=== PATIENT | female | born 1980 | race African-American/Black ===

== ENCOUNTER 2017-02-14 00:09 | Emergency (ER) | payer MEDICAID ==
[~2017-02-14] VITALS: Ht 170.2 cm; Wt 82.6 kg
[~2017-02-14 00:09] MED LIST: ALBUTEROL SULF8.5 GM INH; AZITHROMYCIN250 MG ORAL; IBUPROFEN600 MG ORAL; LEVAQUIN750 MG ORAL; MACROBID100 MG ORAL; NORCO 5-325 TA1 EACH ORAL; PAROXETINE HCL20 MG PO; PREDNISONE20 MG ORAL; PROMETHAZINE-C118 M1 ORAL; PROMETHAZINE-P118 M1 PO; TESSALON PERLE100 M2 ORAL
[2017-02-14 00:30] VITALS: BP 118/68
[2017-02-14] MEDS ORDERED: Lidocaine 2% Visc 15ml soln ORAL ONE (00:30)
[2017-02-14] MEDS ORDERED: LIDOCAINE VISC100 ML ORAL (00:51)
[2017-02-14 00:56] VITALS: BP 118/68
--- NOTE | 2017-02-14 01:06 | Emergency Room Report ---
History of Present Illness General Chief Complaint: Sore Throat Source: Patient Present Illness HPI Patient is a 36-year-old female presented after increased sore throat. Patient had recent tonsillectomy. Patient had not been having any fever. She reported having some increase pain to her throat. Patient states that she had run out of her Tylenol with codeine. She had not been bleeding. Patient surgery done at [facility]. Allergies: Coded Allergies: ACETAMINOPHEN (Verified Adverse Reaction, 06/17/13) OXYCODONE (Verified Adverse Reaction, 06/17/13) Patient History Past Medical History: see triage record Last Menstrual Period: 01/18/17 Now: No Reviewed Nursing Documentation: PMH: Agreed, PSxH: Agreed Nursing Documentation-PMH Past Medical History: No History, Except For Hx Cardiac Problems: No - Chronic Tonsilitis Hx Hypertension: No Hx Pacemaker: No Hx Asthma: Yes Hx COPD: No Hx Diabetes: No Hx Cancer: No Hx Gastrointestinal Problems: No Hx Dialysis: No Hx Neurological Problems: No Hx Cerebrovascular Accident: No Hx Seizures: No Review of Systems All Other Systems: negative except mentioned in HPI Physical Exam Vital Signs Date Time Temp Pulse Resp B/P (MAP) Pulse Ox O2 Delivery O2 Flow Rate FiO2 02/14/17 00:16 98.2 58 17 118/68 97 Room Air General Appearance: well appearing, no apparent distress, alert, GCS 15 Head: normocephalic, atraumatic ENT: hearing grossly normal, normal voice, other - post surgical changes, no bleeding Neck: full range of motion, supple Respiratory: no respiratory distress, speaking full sentences Cardiovascular #1: regular rate, rhythm, no edema Gastrointestinal: normal inspection Musculoskeletal: normal inspection, no calf tenderness Neurologic: normal inspection, alert, oriented x3, responsive, software administrator III-XII nml as tested, motor strength/tone normal, normal gait Psychiatric: mood/affect normal Skin: normal inspection, no rash Medical Decision Making Diagnostic Impression: Primary Impression: Sore throat Additional Impression: Post-tonsillectomy pain ER Course Patient presented for sore throat. Differential diagnosis included but was not limited to meningitis, exudative tonsillitis, retropharyngeal abscess, epiglottitis, strep pharyngitis. Patient's benign exam and does not appear to require any further imaging or laboratory testing at this time. Patient given viscous lidocaine with improvement in pain control. Patient was advised to followup with her ENT. She is advised to return if she began having difficulty breathing, tonsillar bleeding or other concerns. Last Vital Signs Date Time Temp Pulse Resp B/P (MAP) Pulse Ox O2 Delivery O2 Flow Rate FiO2 02/14/17 00:56 98.2 58 17 118/68 97 Room Air Status: improved Disposition: HOME, SELF-CARE Condition: Stable Scripts Lidocaine HCl 2% Viscous (Lidocaine HCl 2% Viscous) 100 Ml Solution 15 ML ORAL QID, #200 ML Prov: Sorin Roldan 02/14/17 Patient Instructions: Tonsillectomy, Adult, Care After Sorin Roldan Feb 14, 2017 01:06
== END 2017-02-14 00:56 | disposition home or self-care (01) ==
LOC: EMR 00:29
DX: J02.9 Acute pharyngitis, unspecified (principal); G89.18 Other acute postprocedural pain; J45.909 Unspecified asthma, uncomplicated; Z88.6 Allergy status to analgesic agent
CPT/HCPCS: 99283

== ENCOUNTER 2017-05-15 20:52 | Emergency (ER) | payer MEDICAID ==
[~2017-05-15] VITALS: Ht 170.2 cm; Wt 81.6 kg
[~2017-05-15 20:52] MED LIST changes: +LIDOCAINE VISC100 ML ORAL
[2017-05-15 21:35] VITALS: BP 118/74
[2017-05-15] MEDS ORDERED: Albuterol/Ipratropium 3ml neb HHN ONE (22:00)
[2017-05-15] MEDS ORDERED: PREDNISONE20 MG ORAL (22:38)
[2017-05-15] MEDS ORDERED: PROMETHAZINE-C118 M1 ORAL (22:38)
[2017-05-15 23:13] VITALS: BP 118/74
== END 2017-05-15 23:15 | disposition home or self-care (01) ==
LOC: EMR 21:33
DX: J40 Bronchitis, not specified as acute or chronic (principal)
CPT/HCPCS: 81025; 94640; 94664; 99282; J7512; J7620

== ENCOUNTER 2018-03-01 18:18 | Emergency (ER) | payer SELFPAY ==
[~2018-03-01] VITALS: Ht 170.2 cm; Wt 74.8 kg
[2018-03-01 18:31] VITALS: BP 122/83
[2018-03-01] MEDS ORDERED: FLUTICASONE PRO16 G1 NASAL (19:08)
[2018-03-01] MEDS ORDERED: SUDAFED PE PRE1 EAC3 PO (19:08)
--- NOTE | 2018-03-01 19:08 | Emergency Room Report ---
History of Present Illness General Chief Complaint: Earache Source: Patient Present Illness HPI 37-year-old female patient presents the ER with multiple complaints. Patient reports sore throat, right ear pain, right nose pain, sinus congestion. Reports sinus congestion nose pain and throat pain is been present for several days. Reports ear pain began today. Patient's daughter reports that she saw "something like bugs" in her right ear. Mother reports history of sore throat in the past, states had tonsils removed. Denies fever, chest pain, shortness of breath. Denies headache. Reports intermittent cough during this time, states dry. Denies calf pain. Denies recent travel. Denies contacts with similar symptoms. Denies vomiting or diarrhea. Denies epistaxis. Reports rhinorrhea. States has been taking loratadine. Allergies: Coded Allergies: OXYCODONE (Verified Adverse Reaction, Unknown, 03/01/18) Patient History Past Medical History: see triage record Last Menstrual Period: last week Now: No Reviewed Nursing Documentation: PMH: Agreed; PSxH: Agreed Nursing Documentation-PMH Past Medical History: No History, Except For Hx Hypertension: No Hx Pacemaker: No Hx Asthma: Yes Hx COPD: No Hx Diabetes: No Hx Cancer: No Hx Gastrointestinal Problems: No Hx Dialysis: No Hx Neurological Problems: No Hx Cerebrovascular Accident: No Hx Seizures: No Review of Systems All Other Systems: negative except mentioned in HPI Physical Exam Vital Signs Date Time Temp Pulse Resp B/P (MAP) Pulse Ox O2 Delivery O2 Flow Rate FiO2 03/01/18 18:31 97.5 67 16 122/83 98 Room Air Sp02 EP Interpretation: reviewed, normal General Appearance: well appearing, no apparent distress, alert, GCS 15, non- toxic Head: normocephalic, atraumatic, other - Frontal sinuses tender to palpation bilaterally Eyes: bilateral eye normal inspection, bilateral eye PERRL ENT: hearing grossly normal, normal pharynx, no angioedema, normal voice, TMs + canals normal, uvula midline, moist mucus membranes, nasal congestion, other - Mild cerumen noted in right ear, no foreign body, no insect; tonsils absent Neck: full range of motion, no bony tend Respiratory: lungs clear, normal breath sounds, no rhonchi, no respiratory distress, no accessory muscle use, no wheezing, speaking full sentences Cardiovascular #1: regular rate, rhythm, no edema Genitourinary: no CVA tenderness Musculoskeletal: back normal, digits/nails normal, gait/station normal, normal range of motion, non-tender Neurologic: alert, oriented x3, responsive, motor strength/tone normal, sensory intact Psychiatric: mood/affect normal Skin: no rash Lymphatic: adenopathy - Cervical Medical Decision Making PA Attestation Dr. Elizabeth is my supervising Physician whom patient management has been discussed with. Diagnostic Impression: Primary Impression: Sinusitis Additional Impressions: Sore throat Earache, right ER Course Pt presents to ED c/o sore throat, right nose pain, right ear pain. DDX considered but are not limited to s influenza, viral URI, pneumonia, strep throat, rhinitis, sinusitis, otitis media, cerumen impaction, FB, pharyngitis, peritonsillar abscess. Low suspicion for peritonsillar abscess, no neck stiffness, no hot potato voice , no stridor. VITAL SIGNS are WNL, patient is afebrile. ER COURSE: No signs of bacterial infection oropharynx. Patient has a history of cough, afebrile, denies fever at home, low suspicion for strep throat. Lungs clear to auscultation, no wheezes rhonchi rales. Patient afebrile does not require chest x-ray, low suspicion for pneumonia. No foreign body visualized within the right ear canal, minimal cerumen noted, does not require treatment at this time. Advised against Q-tip use. No TM erythema, no effusion, no TM perforation, low suspicion for otitis media. Nasal congestion noted on physical exam, frontal sinuses tender to palpation, likely sinusitis. Has been present for 5 days, does not require antibiotic treatment at this time. Patient will be treated for probable sinus congestion and patient agrees with treatment plan. ER precautions given. F/u with PCP and discuss further treatment and referral as needed. Continue to take loratadine for earache symptoms. DISCHARGE: At this time pt is stable for d/c to home. Patient reports being in no acute distress currently. Patient to take medications as instructed Will provide with patient care instructions and any necessary prescriptions. Care plan and follow-up instructions provided. Patient instructed to follow-up with primary care provider in 3 - 5 days and discuss follow-up with dentist for any tooth pain. Patient questions asked and answered. ER precautions given. Patient instructed to return to ER immediately for any new or worsening of symptoms including but not limited to fever, facial weakness , difficulty speaking, difficulty breathing, difficulty swallowing. - Please note that this Emergency Department Report was dictated using [employer]ior solutions architect technology software, occasionally this can lead to erroneous entry secondary to interpretation by the dictation equipment. Last Vital Signs Date Time Temp Pulse Resp B/P (MAP) Pulse Ox O2 Delivery O2 Flow Rate FiO2 03/01/18 18:31 97.5 67 16 122/83 98 Room Air Status: improved Disposition: HOME, SELF-CARE Condition: Stable Scripts Guaifen/Phenyleph/Acetaminophn (Sudafed PE Pressure+Pain+Mucus) 1 Each Tablet 1 EACH PO TID, #24 TAB Prov: Christopher Duran 03/01/18 Fluticasone Propionate* (FLUTICASONE PROPIONATE*) 16 Gm [place].susp 1 SPRAY NASAL TWICE A DAY, #16 GM Prov: Christopher Duran 03/01/18 Patient Instructions: Earache, Sinusitis, Adult, [id number], Sore Throat, [id number] Additional Instructions: Followup with primary care provider in 3 -5 days. Salt water gargles Take Tylenol for pain and fever symptoms Drink plenty of water. Take medications as directed. Patient questions asked and answered. ER precautions given, patient instructed to return to ER immediately for any new or worsening of symptoms including but not limited to intractable vomiting, difficulty breathing, inability to eat. Christopher Duran Mar 01, 2018 19:08
[2018-03-01 19:31] VITALS: BP 126/80
== END 2018-03-01 19:31 | disposition home or self-care (01) ==
LOC: EMR 18:56
DX: J32.9 Chronic sinusitis, unspecified (principal); J02.9 Acute pharyngitis, unspecified; H92.01 Otalgia, right ear; J45.909 Unspecified asthma, uncomplicated
CPT/HCPCS: 99283

== ENCOUNTER 2018-05-12 08:20 | Emergency (ER) | payer SELFPAY ==
[~2018-05-12] VITALS: Ht 170.2 cm; Wt 81.6 kg
[~2018-05-12 08:20] MED LIST changes: +FLUTICASONE PRO16 G1 NASAL; +SUDAFED PE PRE1 EAC3 PO
--- NOTE | 2018-05-12 08:27 | NUR ---
ED Nurse Note: Pt went to the restroom when called.
[2018-05-12 08:41] VITALS: BP 113/73
--- NOTE | 2018-05-12 08:43 | NUR ---
ED Nurse Note:pt. came with sore throat for 2 months also headache, A/Ox4 , ambulatory seen by ER
--- NOTE | 2018-05-12 08:56 | Emergency Room Report ---
History of Present Illness General Chief Complaint: Sore Throat Source: Patient Present Illness HPI 38-year-old female presents ED for evaluation. Patient states she's been experiencing sore throat and headache for several months now. Pain is throbbing , 8 out of 10, nonradiating. States she's feeling lightheaded with blurry vision. Denies fevers chills. Denies cough. States that she had tonsillectomy done previously. Has been having persistent pain since surgery. Was told by her ENT to go to the ER. No other aggravating relieving factors. Denies any other associated symptoms Allergies: Coded Allergies: OXYCODONE (Verified Adverse Reaction, Unknown, 03/01/18) Patient History Past Medical History: asthma Past Surgical History: other - tonsillectomy Pertinent Family History: none Social History: Denies: smoking, alcohol use, drug use Last Menstrual Period: 04/29/18 Now: No Immunizations: UTD Reviewed Nursing Documentation: PMH: Agreed; PSxH: Agreed Nursing Documentation-PMH Past Medical History: No History, Except For Hx Hypertension: No Hx Pacemaker: No Hx Asthma: Yes Hx COPD: No Hx Diabetes: No Hx Cancer: No Hx Gastrointestinal Problems: No Hx Dialysis: No Hx Neurological Problems: No Hx Cerebrovascular Accident: No Hx Seizures: No Review of Systems All Other Systems: negative except mentioned in HPI Physical Exam Vital Signs Date Time Temp Pulse Resp B/P (MAP) Pulse Ox O2 Delivery O2 Flow Rate FiO2 05/12/18 08:32 97.7 81 20 113/73 98 Room Air Sp02 EP Interpretation: reviewed, normal General Appearance: no apparent distress, alert, GCS 15, non-toxic Head: normocephalic, atraumatic Eyes: bilateral eye normal inspection, bilateral eye PERRL ENT: hearing grossly normal, normal pharynx, no angioedema, normal voice Neck: full range of motion, supple, no meningismus, supple/symm/no masses Respiratory: chest non-tender, lungs clear, normal breath sounds, speaking full sentences Cardiovascular #1: regular rate, rhythm, no edema Cardiovascular #2: 2+ carotid (R), 2+ carotid (L), 2+ radial (R), 2+ radial (L) , 2+ dorsalis pedis (R), 2+ dorsalis pedis (L) Gastrointestinal: normal bowel sounds, non tender, soft, non-distended, no guarding, no rebound Rectal: deferred Genitourinary: normal inspection, no CVA tenderness Musculoskeletal: back normal, gait/station normal, normal range of motion, non- tender Neurologic: alert, oriented x3, responsive, motor strength/tone normal, sensory intact, speech normal Psychiatric: judgement/insight normal, memory normal, mood/affect normal, no suicidal/homicidal ideation Reflexes: 3+ bicep (R), 3+ bicep (L), 3+ tricep (R), 3+ tricep (L), 3+ knee (R) , 3+ knee (L) Skin: normal color, no rash, warm/dry, well hydrated Lymphatic: no adenopathy Medical Decision Making Diagnostic Impression: Primary Impression: Sinus infection Qualified Codes: J32.1 - Chronic frontal sinusitis ER Course Hospital Course 38 yo F presents with sore throat, headche, dizziness Differential diagnoses include: URI, pharyngitis, otitis media, asthma Clinical course Patient placed on stretcher. After initial history, physical exam reveals a female in no acute distress. Bilateral TM unremarkable. No pharyngeal erythema. No tonsillar exudates. No lymphadenopathy. no focal neurological deficits. lungs clear. Given patient's symptoms of dizziness with blurred vision and headache the ordered CT head CT head unremarkable. Reassurance given to patient. No focal deficits. No significant findings on exam. Consideration for sinusitis. We'll discharge with prednisone and antibiotics. Will also provide an ENT and PMD referrals Diagnosis - sinus infection Stable and discharged home with prescriptions for Prednisone, augmentin. Instructed to followup with PMD. Return to ED if symptoms recur or worsen CT/MRI/US Diagnostic Results CT/MRI/US Diagnostic Results : Imaging Test Ordered: CT Head Impression no acute process Last Vital Signs Date Time Temp Pulse Resp B/P (MAP) Pulse Ox O2 Delivery O2 Flow Rate FiO2 05/12/18 08:41 97.7 78 20 113/73 98 Room Air Status: improved Disposition: HOME, SELF-CARE Condition: Stable Scripts Prednisone* (PREDNISONE*) 20 Mg Tablet 40 MG ORAL DAILY, #10 TAB Prov: Hari Talley MD 05/12/18 Amoxicillin/Potassium Clav 875-125* (AUGMENTIN 875-125 TABLET*) 1 Each Tablet 1 TAB ORAL TWICE A DAY for 10 Days, #20 TAB Prov: Hari Talley MD 05/12/18 Referrals: NON PHYSICIAN (PCP) Hari Talley MD May 12, 2018 08:56
--- NOTE | 2018-05-12 09:25 | NUR ---
ED Nurse Note:pt. came back from CT head
--- NOTE | 2018-05-12 09:43 | Diagnostic Imaging Report ---
Indication: Headache Technique: Contiguous 5 mm thick transaxial imaging of the head obtained in a Siemens Sensation [address] scanner. Soft tissue and bone windows generated. Automatic Exposure Control was utilized. Total Dose length Product (DLP): 1330.[address] Dose Index Volume (CTDIvol): 70.38 mGy Comparison: none Findings: The size and configuration of the cortical sulci, basal cisterns, and ventricles are within normal limits for age. There is no mass effect, midline shift, or edema identified. There is no evidence of acute hemorrhage or abnormal intra-axial or extra-axial fluid collections. The bones and soft tissues are unremarkable. Impression: No mass effect, edema or acute bleed. The CT scanner at [facility] is accredited by the [employer] and the scans are performed using dose optimization techniques as appropriate to a performed exam including Automatic Exposure control.
[2018-05-12] MEDS ORDERED: PREDNISONE20 MG ORAL (09:57)
[2018-05-12] MEDS ORDERED: AUGMENTIN 875-1 EAC1 ORAL (09:57)
[2018-05-12 10:06] VITALS: BP 113/73
--- NOTE | 2018-05-12 10:07 | NUR ---
ED Nurse Note:pt. received d/c instructions with prescriptions and left ER with steady gait and all belongings
== END 2018-05-12 10:10 | disposition home or self-care (01) ==
LOC: EMR 08:42
DX: J32.1 Chronic frontal sinusitis (principal); J45.909 Unspecified asthma, uncomplicated; R51 Headache
CPT/HCPCS: 70450; 99284

== ENCOUNTER 2019-05-21 17:01 | Emergency (ER) | payer SELFPAY ==
[~2019-05-21] VITALS: Ht 167.6 cm; Wt 90.7 kg
[~2019-05-21 17:01] MED LIST changes: +AUGMENTIN 875-1 EAC1 ORAL
[2019-05-21 17:06] VITALS: BP 100/68
--- NOTE | 2019-05-21 17:06 | NUR ---
ED Nurse Note: Patient walked in c/o cough x 3 weeks with a sore throat and nasal congestion. Temp 97.4 F in the ER. Pt rates pain at 3/10. A&O x4, V/S stable with no s/s of acute distress noted at this time. Denies recent travels outside the [place]. PA at bedside monitoring patient.
[2019-05-21] MEDS ORDERED: Albuterol ud Inhalation HHN ONE (17:45)
--- NOTE | 2019-05-21 17:48 | Diagnostic Imaging Report ---
EXAM: XR Chest, 1 View CLINICAL HISTORY: PAIN TECHNIQUE: Frontal view of the chest. COMPARISON: 03/22/2013 FINDINGS: Lungs: Chronic hyperinflation. No consolidation, pleural effusion, or pneumothorax. Pleural space: See above. Heart: Unremarkable. No cardiomegaly. Mediastinum: Unremarkable. Bones/joints: Unremarkable. IMPRESSION: 1. No acute cardiopulmonary disease. 2. Chronic hyperinflation. 3. If there is continued concern, recommend CT.
--- NOTE | 2019-05-21 17:51 | Emergency Room Report ---
History of Present Illness General Chief Complaint: Upper Respiratory Illness Source: Patient, Medical Record (Melva Penaloza) Present Illness HPI 39-year-old female presents to the emergency department complaining of a persistent cough x3 weeks with 2 out of 10 severity sore throat and nasal congestion/rhinorrhea. She reports hx of recurrent tonsillitis in the past. She also repots hx of asthma. She denies fevers or chills. Denies , ear pain, high fevers, lethargy, neck pain/stiffness, irritability, photophobia dehydration, N/V/D. Denies Cp, Palpitations, LOC, AMS, seizures, paresthesias, or changes in Hearing or vision, no Sudden severe CUMMINS. Denies hx of smoking, or COPD. Denies recent travel. Denies contact with persons who have tested positive for or are under investigation/quarantine for COVID-19. (Melva Penaloza) Allergies: Coded Allergies: OXYCODONE (Verified Adverse Reaction, Unknown, 03/01/18) Patient History Past Medical History: see triage record Past Surgical History: none Pertinent Family History: none Last Menstrual Period: 05/10/2019 Now: No : 5 Para: 2 Reviewed Nursing Documentation: PMH: Agreed; PSxH: Agreed (Melva Penaloza) Nursing Documentation-PMH Hx Hypertension: No Hx Pacemaker: No Hx Asthma: Yes Hx COPD: No Hx Diabetes: No Hx Cancer: No Hx Gastrointestinal Problems: No Hx Dialysis: No Hx Neurological Problems: No Hx Cerebrovascular Accident: No Hx Seizures: No (Melva Penaloza) Review of Systems All Other Systems: negative except mentioned in HPI (Melva Penaloza) Physical Exam Vital Signs Date Time Temp Pulse Resp B/P (MAP) Pulse Ox O2 Delivery O2 Flow Rate FiO2 05/21/19 17:06 74 18 Room Air 05/21/19 17:06 97.3 100/68 (79) 92 Sp02 EP Interpretation: reviewed, normal General Appearance: no apparent distress, alert, GCS 15, non-toxic Head: normocephalic, atraumatic Eyes: bilateral eye normal inspection, bilateral eye PERRL ENT: hearing grossly normal, normal voice, TMs + canals normal, uvula midline, nasal congestion, pharyngeal erythema - no exudates Neck: full range of motion, no meningismus Respiratory: chest non-tender, no rhonchi, no respiratory distress, no accessory muscle use, speaking full sentences, wheezing - mild -bilateral expiratory wheezes Cardiovascular #1: regular rate, rhythm Rectal: deferred Musculoskeletal: normal range of motion, gait/station normal, non-tender Neurologic: alert, motor strength/tone normal, oriented x3, sensory intact, responsive, speech normal Psychiatric: judgement/insight normal Skin: no rash, normal color, normal inspection Lymphatic: no adenopathy (Melva Penaloza) Vital Signs Date Time Temp Pulse Resp B/P (MAP) Pulse Ox O2 Delivery O2 Flow Rate FiO2 05/21/19 17:06 74 18 Room Air 05/21/19 17:06 97.3 100/68 (79) 92 05/21/19 17:47 21 Sp02 EP Interpretation: reviewed, abnormal - interpreted by me as low (Chris Mccracken MD) Medical Decision Making PA Attestation Dr. Mccracken is my supervising Physician whom patient management has been discussed with. (Melva Penaloza) Diagnostic Impression: Primary Impression: Bronchitis with bronchospasm ER Course 39-year-old female presents to the emergency department complaining of a persistent cough x3 weeks with 2 out of 10 severity sore throat and nasal congestion/rhinorrhea. She reports hx of recurrent tonsillitis in the past. She also repots hx of asthma. She denies fevers or chills. Denies , ear pain, high fevers, lethargy, neck pain/stiffness, irritability, photophobia dehydration, N/V/D. Denies Cp, Palpitations, LOC, AMS, seizures, paresthesias, or changes in Hearing or vision, no Sudden severe CUMMINS. Denies hx of smoking, or COPD. Denies recent travel. Denies contact with persons who have tested positive for or are under investigation/quarantine for COVID-19. Ddx considered but are not limited to URI, pneumonia, PE, strep pharyngitis, meningitis. Vital signs: Pt.is afebrile VS are WNL H&PE are most consistent with bronchitis ORDERS: none required at this time, the diagnosis is clinical ED INTERVENTIONS: -Albuterol HHN DISCHARGE: At this time pt. is stable for d/c to home. Will provide printed patient care instructions, and any necessary prescriptions. Care plan and follow up instructions have been discussed with the patient prior to discharge. (Melva Penaloza) Last Vital Signs Date Time Temp Pulse Resp B/P (MAP) Pulse Ox O2 Delivery O2 Flow Rate FiO2 05/21/19 17:06 97.3 74 18 100/68 92 Room Air (Melva Penaloza) Last Vital Signs Date Time Temp Pulse Resp B/P (MAP) Pulse Ox O2 Delivery O2 Flow Rate FiO2 05/21/19 18:20 97.3 74 22 100/68 100 Room Air 21 (Chris Mccracken MD) Disposition: HOME, SELF-CARE Condition: Stable Scripts Prednisone* (PREDNISONE*) 20 Mg Tablet 40 MG ORAL DAILY for 5 Days, #10 TAB Prov: Melva Penaloza 05/21/19 Benzonatate* (BENZONATATE*) 200 Mg Capsule 200 MG ORAL THREE TIMES A DAY, #21 PERLE Prov: Melva Penaloza 05/21/19 Codeine/Promethazine Hcl* (PROMETHAZINE-CODEINE SYRUP*) 118 Ml Syrup 5 ML ORAL Q6H PRN for For Cough, #120 ML 0 Refills Prov: Melva Penaloza 05/21/19 Albuterol Sulfate* (ALBUTEROL SULFATE MDI*) 8.5 Gm Hfa.aer.ad 2 PUFF INH Q3H, #1 INH 0 Refills Prov: Melva Penaloza 05/21/19 Patient Instructions: Acute Bronchitis Additional Instructions: Take medications as directed. Do not drink alcohol, drive, or operate heavy machinery while taking Cough Syrup as this may cause drowsiness. Follow up with a Primary Care Provider in 3-5 days, even if your symptoms have resolved. Return sooner to ED if new symptoms occur, or current symptoms become worse. - Please note that this Emergency Department Report was dictated using [employer] packer technology software, occasionally this can lead to erroneous entry secondary to interpretation by the dictation equipment. Melva Penaloza May 21, 2019 17:51 Chris Mccracken MD May 25, 2019 01:49
[2019-05-21] MEDS ORDERED: BENZONATATE200 MG ORAL (17:53)
[2019-05-21] MEDS ORDERED: PREDNISONE20 MG ORAL (17:53)
[2019-05-21] MEDS ORDERED: ALBUTEROL SULF8.5 GM INH (17:53)
[2019-05-21] MEDS ORDERED: PROMETHAZINE-C118 M1 ORAL (17:53)
[2019-05-21 18:20] VITALS: BP 100/68
--- NOTE | 2019-05-21 18:21 | NUR ---
ER DISCHARGE NOTE: Patient is cleared to be discharged per MIKEL CHARLTON pt is aox4, on room air, with stable vital signs. pt was given dc and prescription instructions, pt was able to verbalize understanding, pt id band removed without complications. pt is able to ambulate with steady gait. pt took all belongings.
== END 2019-05-21 18:20 | disposition home or self-care (01) ==
LOC: EMR 17:30
DX: J20.9 Acute bronchitis, unspecified (principal)
CPT/HCPCS: 71045; 99283